=== PATIENT | female | born 1945 | race Caucasian/White ===

== ENCOUNTER 2025-05-18 16:28 | Outpatient (CLI) | payer MEDICARE, SELFPAY | END 2025-05-18 16:29 | disposition home or self-care (01) | PROVIDERS: Visit Provider Physician Assistant Medical | DX: G25.81 Restless legs syndrome (principal); C56.3 Malignant neoplasm of bilateral ovaries; G47.9 Sleep disorder, unspecified; Z79.899 Other long term (current) drug therapy | CPT/HCPCS: 80053; 82607; 82728; 82746; 84439; 84443 ==